=== PATIENT | female | born 1985 | race Caucasian/White ===

== ENCOUNTER 2016-06-15 07:52 | Emergency (ER) | payer MEDICAID ==
[~2016-06-15] VITALS: Ht 160 cm; Wt 60.0 kg
[~2016-06-15 07:52] MED LIST: ACYC800T PO; CEPH-583 PO; CYCL-375 PO; PREN-13 PO
[2016-06-15 07:55] VITALS: Ht 160 cm; Wt 60.0 kg
--- NOTE | 2016-06-15 08:44 | ERPDOC ---
Departure Disposition Decision Date: Jun 15, 2016 Disposition Decision Time: 08:43 Disposition: 01 DISCHARGED HOME, SELF-CARE Impression Impression Impression: Primary Impression: Otitis media of left ear Additional Impression: Otitis externa, left Severity: Moderate Condition: Stable Seen By: Physician only Patient Instructions: Earache (ED) Problems/Meds/Labs Reviewed?: Yes Medications reviewed and manag: Yes Additional Instructions: Keflex 500 mg, 2 tabs twice daily for 10 days. Cortisporin otic drops, 4 drops to left ear 4 times daily for 7 days. Follow-up with her primary care provider. Follow up care ordered?: Yes Mental Status: Alert, Oriented Scripts Cephalexin (Keflex) 500 Mg Capsule 2 CAP PO BID, #40 CAP Prov: VENESSA CARRION MD 06/15/16 Neomycin/Polymyxin B Sulf/Hc (Tfrshuok-Yedlcjfbw-Th Ear Susp) 10 Ml Drops.susp 4 DROP OT QID, #10 ML Prov: VENESSA CARRION MD 06/15/16 HPI General Chief Complaint: Ear Pain/Injury Stated Complaint: EAR PAIN, THROAT PAIN, SWELLING IN NECK 35 WKS PRE Time Seen by Provider: 08:18 HPI Ear Pain Initial Comments 30-year-old female at 35 weeks' , presents with left-sided ear pain. No vaginal bleeding, no contractions, no vaginal discharge. She does feel the baby move. She has appropriate follow-up with obstetrics, by her report. Yesterday left-sided ear pain onset, this morning it is much more severe. Pain radiates down into her jaw on the left side. It hurts to chew food. No fever or chills. No difficulty swallowing. Allergies: Coded Allergies: Penicillins (Verified Allergy, Unknown, RASH, 06/15/16) Past History Past Medical History Pt denies signifigant PMH Surgical History General: tonsils Family History Family PMH: FOUND: other Social History Substance Use Type: does not use Alcohol Intake: none Sexuality: male partner Record Review Pertinent history updated: Yes Review of Systems ENMT Mouth/Throat: see HPI Teeth: see HPI Cardiovascular Cardiac: see HPI Pulmonary Respiratory: see HPI : see HPI All other Systems All Other Systems: Reviewed and Negative Exam General General Nourishment: well nourished, well developed, appears stated age, no acute distress General Body Habitus: well groomed Height (Feet): 5 Height (Inches): 3.00 ENMT (brief) Comments Left auditory canal with whitish debris throughout the canal. Left tympanic membrane is red and bulging. Patient has reactive lymph nodes anterior cervical neck. Neck Comments Cervical lymph nodes anterior, left cervical neck Respiratory (brief) Respiratory Brief: FOUND: clear all howe, equal bilaterally Cardiovascular (brief) Cardiac Brief: FOUND: regular rate, regular rhythm Neurologic RN Documented GCS Eye Opening: Verbal: Motor: Total: Differential Diagnoses Considering: Cellulitis, Eustachian tube dysfuncti, Otitis Externa, Otitis Media Progress Progress Progress Left-sided otitis media with otitis externa as well. Patient started on Keflex 500 mg 2 tabs twice a day. Cortisporin otic drops prescribed her ear. Patient is to follow-up with her primary care provider/OB as scheduled. Welcome to return if any other issues. VENESSA CARRION MD Jun 15, 2016 08:43
[2016-06-15] MEDS ORDERED: CEPH-583 PO (08:46)
[2016-06-15] MEDS ORDERED: NEOM10DR7 OT (08:46)
[2016-06-15 08:53] VITALS: BP 121/73; PULSE 89; RESP 16; TEMP 98.1; O2SAT 96
[2016-06-15] MEDS ORDERED: DOXY1TAB3 PO (08:57)
== END 2016-06-15 08:53 | disposition home or self-care (01) ==
LOC: ED 07:52
DX: O98.813 Other maternal infectious and parasitic diseases complicating pregnancy, third trimester (principal); H66.92 Otitis media, unspecified, left ear; H60.92 Unspecified otitis externa, left ear; Z3A.35 35 weeks gestation of pregnancy

== ENCOUNTER 2016-06-26 06:10 | Inpatient (IN) | payer MEDICAID ==
[~2016-06-26] VITALS: Ht 160 cm; Wt 58.4 kg
[~2016-06-26 06:10] MED LIST changes: -ACYC800T PO; -CYCL-375 PO; +DOXY1TAB3 PO; +NEOM10DR7 OT
--- OUTSIDE RECORDS SUMMARY | 2016-06-26 06:15 | XMS REPORT | Continuity of Care Document ---
Author Author [facility] Organization [facility] Address Unknown Phone Unavailable Support Name Relationship Address Phone VENESSA CARRION MD Caregiver [address] [place] [phone] Unavailable SUGAR BARAHONA Next Of Kin [address] [place] [id number] Insurance Providers Guarantor Roxanna Ramos Address [address] [address] Email DENIED 16 Payer [facility] State Plan Policy Number [id number] Subscriber's Name Roxanna Ramos Relationship 18 Self Effective Date 16 Expiration Date 16 Advance Directives Directive Response Recorded Date/Time Advanced Directives Type None 06/15/16 7:55am Chief Complaint and Reason for Visit Chief Complaint Ear Pain/Injury Reason for Visit [id number] Otitis media of left ear Problems Active Problems Medical Problem Onset Date Status Folliculitis Unknown Acute Nausea and vomiting during Unknown Acute Past Problems Medical Problem Onset Date Back strain Unknown Nausea and vomiting during Unknown Otitis externa, left Unknown Otitis media of left ear Unknown Patient left without being seen Unknown Shingles Unknown Medications Current Home Medications Medication Dose Units Route Directions Days Qty Instructions Start Date Cephalexin (Keflex) 500 Mg Capsule 2 Cap Oral Twice A Day 40 Capsule 06/15/16 Doxylamine/Pyridoxine Hcl (Richard Gilbert 10-10 Mg Tablet) 1 Each Tablet. 1 Tab Oral Daily 06/15/16 Neomycin/Polymyxin B Sulf/Hc (Tqxvosqf-Tbmhnkqqo-Yo Ear Susp) 10 Ml Drops.susp 4 Drop Otic Four Times Daily 10 Milliliter 06/15/16 Vit W-Ca,Fe,Fa(<1 Mg) ( Formula) 1 Each Tablet 1 Tab Oral Daily 01/02/16 Social History Social History Problem Response Recorded Date/Time Onset Date Status Chewing Tobacco Status No 06/15/2016 7:55am Not Applicable Not Applicable Hx Substance Use No 06/15/2016 7:55am Not Applicable Not Applicable Hx Alcohol Use No 06/15/2016 7:55am Not Applicable Not Applicable Query Response Start Date Stop Date Smoking Status Current every day smoker Hospital Discharge Instructions No hospital discharge instructions. Plan of Care Discharge Date 06/15/16 8:53am Disposition 01 DISCHARGED HOME, SELF-CARE Condition at Discharge Stable Instructions/Education Provided Earache (ED) Prescriptions See Medication Section Additional Instructions/Education Keflex 500 mg, 2 tabs twice daily for 10 days. Cortisporin otic drops, 4 drops to left ear 4 times daily for 7 days. Follow-up with her primary care provider. Functional Status No functional status results. Allergies, Adverse Reactions, Alerts Allergen Type Severity Reaction Status Last Updated Penicillin Allergy Unknown RASH Active 06/15/16 Immunizations Query Response on File Recorded Date/Time Influenza Vaccine Hx NOT REC'D THIS SEASON 06/15/16 7:55am Vital Signs Acute Vital Signs Vital Response Date/Time Temperature (Fahrenheit) 98.1 deg F (96.8 - 99.1) 06/15/2016 8:53am Temperature (Calculated Celsius) 36.86137 degrees C (36.0 - 37.3) 06/15/2016 8:53am Pulse Rate (adult) 89 bpm (60 - 100) 06/15/2016 8:53am Respiratory Rate 16 breaths/min (10 - 20) 06/15/2016 8:53am O2 Sat by Pulse Oximetry 96 % (90 - 100) 06/15/2016 8:53am Blood Pressure 121/73 mm Hg 06/15/2016 8:53am Height (Feet) 5 feet 06/15/2016 7:55am Height (Inches) 3.00 inches 06/15/2016 7:55am Weight (Kilograms) 60.000 kg 06/15/2016 7:55am Body Mass Index (BMI) 23.0 06/15/2016 7:55am Results Laboratory Results Test Name Result Units Flags Reference Collection Date/Time Result Date/ Time Comments White Blood Count 10.5 T/MM3 4.5-11.0 04/03/2016 10:48am 04/03/2016 10: 55am Red Blood Count 4.26 M/MM3 4.00-5.20 04/03/2016 10:48am 04/03/2016 10: 55am Hemoglobin 13.4 GM/DL 12-16 04/03/2016 10:48am 04/03/2016 10:55am Hematocrit 39.3 % 36-46 04/03/2016 10:48am 04/03/2016 10:55am Mean Corpuscular Volume 92.3 UM3 80-100 04/03/2016 10:48am 04/03/2016 10:55am Mean Corpuscular Hemoglobin 31.5 UUG 26-34 04/03/2016 10:48am 2016 10:55am Mean Corpuscular Hemoglobin Concent 34.1 GM/DL 31-37 04/03/2016 10:48am 04/03/2016 10:55am RDW Standard Deviation 44.4 FL 36.9-50.2 04/03/2016 10:48am 04/03/2016 10:55am Platelet Count 231 T/MM3 130-400 04/03/2016 10:48am 04/03/2016 10:55am Mean Platelet Volume 10.7 UM3 9.4-12.4 04/03/2016 10:48am 04/03/2016 10 :55am Neutrophils % (Manual) 92.0 % H 33-66 04/03/2016 10:48am 04/03/2016 11: 27am Lymphocytes % (Manual) 7.0 % L 23-45 04/03/2016 10:48am 04/03/2016 11: 27am Basophils % (Manual) 1.0 % 0-2 04/03/2016 10:48am 04/03/2016 11:27am Absolute Neutrophils (Manual) 9.7 T/MM3 H 1.8-7.7 04/03/2016 10:48am 03/2016 11:27am Lymphocytes # (Manual) 0.7 T/MM3 L 1-4.8 04/03/2016 10:48am 04/03/2016 11:27am Basophils # (Manual) 0.1 T/MM3 0-0.2 04/03/2016 10:48am 04/03/2016 11: 27am Red Cell Morphology Comment NORMAL 04/03/2016 10:48am 04/03/2016 11 :27am Icterus Index < 2 0-7 04/03/2016 10:48am 04/03/2016 11:03am Chemistry Specimen Hemolysis < 15 0-25 04/03/2016 10:48am 04/03/2016 11:03am 0-25: Specimen Exhibited No Hemolysis. Turbidity < 20 0-20 04/03/2016 10:48am 04/03/2016 11:03am Sodium Level 140 MEQ/L 134-144 04/03/2016 10:48am 04/03/2016 11:03am Potassium Level 3.4 MEQ/L L 3.6-5 04/03/2016 10:48am 04/03/2016 11:03am Chloride Level 108 MEQ/L H 98-107 04/03/2016 10:48am 04/03/2016 11:03am Carbon Dioxide Level 20 MEQ/L L 22-30 04/03/2016 10:48am 04/03/2016 11: 03am Anion Gap 12 MEQ/L 5-15 04/03/2016 10:48am 04/03/2016 11:03am Blood Urea Nitrogen 5.0 MG/DL L 7-17 04/03/2016 10:48am 04/03/2016 11: 03am Creatinine 0.5 MG/DL L 0.7-1.2 04/03/2016 10:48am 04/03/2016 11:03am BUN/Creatinine Ratio 10 RATIO 6-26 04/03/2016 10:48am 04/03/2016 11: 03am Glomerular Filtration Rate Calc 147 04/03/2016 10:48am 04/03/2016 11:03am Glucose Level 95 MG/DL 65-110 04/03/2016 10:48am 04/03/2016 11:03am Calculated Osmolality 266 MOSM/KG 261-280 04/03/2016 10:48am 2016 11:03am Calcium Level 8.7 MG/DL 8.4-10.2 04/03/2016 10:48am 04/03/2016 11:03am Total Bilirubin 0.40 MG/DL 0.20-1.30 04/03/2016 10:48am 04/03/2016 11: 03am Alkaline Phosphatase 83 U/L 38-126 04/03/2016 10:48am 04/03/2016 11: 03am Total Protein 7.2 G/DL 6.3-8.2 04/03/2016 10:48am 04/03/2016 11:03am Albumin 3.9 G/DL 3.5-5.0 04/03/2016 10:48am 04/03/2016 11:03am Globulin 3.3 G/DL 2.4-3.6 04/03/2016 10:48am 04/03/2016 11:03am Albumin/Globulin Ratio 1.2 RATIO 1.1-2.2 04/03/2016 10:48am 04/03/2016 11:03am Aspartate Amino Transf (AST/SGOT) 19 U/L 14-36 04/03/2016 10:48am 04/03 11:03am Alanine Aminotransferase (ALT/SGPT) 22 U/L 9-52 04/03/2016 10:48am 03/2016 11:03am Procedures Procedure Status Date Provider(s) non-stress test Completed 04/03/16 Comprehen metabolic panel Completed 04/03/16 Complete cbc w/auto diff wbc Completed 04/03/16 Hydration iv infusion init Completed 04/03/16 [id number]"RINGERS LACTATE INFUSION, UP TO 1000 CC" Completed 04/03/16 Encounters Encounter Location Arrival/Admit Date Discharge/Depart Date Attending Provider Departed Emergency Room [facility] 06/15/16 7:52am 06/15/16 8: 53am VENESSA CARRION MD Departed Clinic [facility] 04/03/16 10:22am 04/03/16 11:50am CORIN JOVEL MD Recent Diagnosis
[2016-06-26] MEDS ORDERED: ACETAMINOPHEN 500 MG TABLET PO PRN ×2 (06:30→12:00)
[2016-06-26] MEDS ORDERED: LIDOCAINE 1% (10mg/ml) 2ml SDV ID PRN (06:30)
[2016-06-26] MEDS ORDERED: MAG-AL + SIM LIQUID 30 ML UDC PO PRN ×2 (06:30→12:00)
[2016-06-26] MEDS ORDERED: CALCIUM CARBONATE 500mg Chewable TAB PO PRN ×2 (06:30→12:00)
[2016-06-26] MEDS ORDERED: OXYTOCIN 30 UNIT in D5LR 500 ML SCH (06:30)
[2016-06-26 06:55] LABS: HCT - HEMATOCRIT 41.3 % (36-46); MEAN CORPUSCULAR HGB 30.3 UUG (26-34); MEAN CORPUSCULAR HGB CONC(MCHC 33.9 GM/DL (31-37); MEAN CORPUSCULAR VOLUME 89.4 UM3 (80-100); RED BLOOD COUNT 4.62 M/MM3 (4.00-5.20); WBC - WHITE BLOOD COUNT 10.3 T/MM3 (4.5-11.0)
[2016-06-26] MEDS ORDERED: D5LR 1,000 ML IV PRN (07:00)
[2016-06-26 07:17] VITALS: BP 125/78; PULSE 80; RESP 16; TEMP 98; O2SAT 99
[2016-06-26] MEDS: LR 1,000 ML IV PRN ×2 (08:25→12:34)
--- NOTE | 2016-06-26 09:49 | ANESOB ---
Epidural/ Date/Time DATE: 06/26/16 TIME: 09:48 Preop Diagnosis Procedure: Labor Epidural Plan: Epidural Height: 5 ' 3.00 " Weight: 58.400 kg BMI: kg/m2 P:2 Medications & Allergies Inpatient Medications Current Medications Medications (Trade) Dose Ordered Sig/Rosio Start Time Stop Time Status Last Admin Dose Admin Dextrose/Lactated Ringer's 1,000 ml @ 0 mls/hr Q0M PRN 06/26/16 07:00 06/26/16 08:25 0 MLS/HR Oxytocin/Dextrose/ Lactated Ringer's (Pitocin/D5lr) 503 ml @ 0 mls/hr Q0M 06/26/16 06:30 06/26/16 08:24 0 MLS/HR Lidocaine HCl 0.2 mg 0.2 mg PRN PRN 06/26/16 06:30 Lactated Ringer's (Lactated Ringers) 1,000 ml @ 0 mls/hr Q0M PRN 06/26/16 06:20 06/26/16 08:25 0 MLS/HR Acetaminophen (Tylenol Extra Strength) 1-2 TABS = 500-1,000 MG Q4H PRN 06/26/16 06:30 Al Hydroxide/Mg Hydroxide (Maalox) 30 ml Q4H PRN 06/26/16 06:30 Calcium Carbonate (TUMS Regular Strength) 1-2 TABS Q2H PRN 06/26/16 06:30 Cephalexin (Keflex) 500 Mg Capsule, 2 CAP PO BID Last Taken: on 06/25/16 0800 Doxylamine/Pyridoxine HCl (Diclegis Dr 10-10 mg Tablet) 1 Each Tablet.dr, 1 TAB PO DAILY, (Reported) Last Taken: on 06/25/16 0800 Neomycin/Polymyxin B Sulf/Hc (Neomycin- Polymyxin-Hc Ear Susp) 10 Ml Drops.susp, 4 DROP OT QID Last Taken: on 06/25/16 2000 Vit W-Ca,Fe,FA(<1 mg) ( Formula) 1 Each Tablet, 1 TAB PO DAILY, (Reported) Last Taken: on 06/25/16 0800 Coded Allergies: Penicillins (Verified Allergy, Unknown, RASH, 06/15/16) Medical/Surgical History Anesthesia PMH: Reports: *Diabetes (GESTATIONAL DM), Denies: Anesthesia Reactions, Cancer, Hepatitis, Malignant Hyperthermia, Rheumatic Fever, Seizures Smoking Status: Current every day smoker # of Packs/Tins per Day: 0.5 Does patient use chewing tobac: No Second Hand Exposure: Yes Substance Use Type: does not use Alcohol Intake: none Anesthesia Adverse Reactions: FOUND none Family Hx of Anesthesia Advers: none Hx of Motion Sickness: No Complications During : No Pertinent Findings Laboratory Tests 06/26/16 06:43 Physical Exam Respiratory: Lungs clear Cardiovascular: Regular rate, rhythm Airway Assessment Mallampati Score: II TMD: 3 Fingerbreadths Neck Extension: Good Overall Assessment: May Be Diff Mask Vent., May Be Diff Intubation ASA: 2 Discussion Discussed risks/options/alternatives of anesthesia. Patient consents. Nursing pain assessment noted. Present for Discussion: Present: Parent, Spouse Attestation Statement Prior to the delivery of any anesthetic medication, I examined the patient, developed the plan, obtained the patient's consent and discussed the risk and benefits of the procedure with the patient/guardian. If the note happens to be signed after anesthesia start time, it is only due to providing efficient care of the patient and documenting at a time when the computer is available. ELLA HUGHES CRNA Jun 26, 2016 09:49
[2016-06-26] MEDS ORDERED: ONDANSETRON 4mg/2ml INJECTION IV PRN (10:00)
[2016-06-26] MEDS ORDERED: ROPIVACAINE 1% 200 MG, SUFENTANIL 50 MCG in NORMAL SALINE 80 ML EPI PRN (10:00)
[2016-06-26] MEDS ORDERED: NALOXONE 0.4mg/ml INJECTION IV PRN (10:00)
[2016-06-26] MEDS ORDERED: DiphenhydrAMINE 50 MG/ML INJECTION IV PRN (10:00)
[2016-06-26] MEDS ORDERED: LIDOCAINE 2% (20mg/ml) 5ml PF SDV ONE (11:22)
[2016-06-26] MEDS ORDERED: SALINE FLUSH 10ml SYRINGE ONE (11:22)
[2016-06-26] MEDS ORDERED: OXYTOCIN 30 UNIT in D5W 500 ML IV ONE (11:49)
[2016-06-26] MEDS ORDERED: DiphenhydrAMINE 25 MG CAPSULE PO PRN (12:00)
[2016-06-26] MEDS ORDERED: HYDROCORTISONE 2.5% CREAM 30 GM RECTALLY PRN (12:00)
[2016-06-26] MEDS ORDERED: MILK OF MAGNESIA 30 ML SUSP PO PRN (12:00)
[2016-06-26] MEDS ORDERED: PHENYLEPHRINE RECTAL SUPPOSITORY RECTALLY PRN (12:00)
--- NOTE | 2016-06-26 15:00 | NUR ---
Care Assumed Report from Adrian Proctor RN. Care assumed.
[2016-06-26 15:30] VITALS: BP 133/67; PULSE 92; RESP 18; TEMP 98.2
--- NOTE | 2016-06-26 15:30 | NUR ---
Assessment VSS and assessment WNL. Pt sitting up in bed. Fundus firm with minimal bleeding. Reporting pain in lower back at epidural site. Motrin given. Discussed POC with pt. Verbalizes understanding.
[2016-06-26] MEDS: IBUPROFEN 800 MG TABLET PO PRN (15:39)
[2016-06-26] MEDS ORDERED: RHO(D) IMMUNE GLOBULIN 300mcg/2ml INJECTION IV ONE (16:15)
--- NOTE | 2016-06-26 16:18 | NUR ---
DCF THIS WORKER RECEIVED CALL FROM DCF WORKERZACH. DCF PLANNING A VISIT TO PT ON THIS DATE. UPDATE TO PRIMARY NURSE AND NOTIFIED TO CALL THIS WORKER WITH ANY NEEDS THAT THE PATIENT MAY HAVE AFTER DCF VISIT.
[2016-06-26] MEDS: HYDROCODONE/APAP 5 mg/325 mg TABLET PO PRN ×2 (17:26→21:04)
--- NOTE | 2016-06-26 18:59 | LDNF ---
DATE OF DELIVERY June 26, 2016 NARRATIVE Ms. Sebastian was admitted for induction of labor due to growth restriction. She measured less than 5th percent yesterday on ultrasound in our office. Her induction went well. At 4 cm dilatation I performed artificial rupture of membranes and produced clear fluid. Approximately an hour later she was complete and +1. She pushed with excellent effort over two contractions, delivering the head in the OA presentation. Baby was bulb suctioned on the perineum. With one further push she delivered the baby in total. Baby was then further bulb suctioned and placed on mother's abdomen. This was a liveborn female. After about two minutes the cord was doubly clamped. It was cut by the baby's father. The baby had Apgars of 7 and 8 and weighed 4 pounds 11.6 ounces. The placenta subsequently delivered spontaneously intact. It had a normal configuration and normal-appearing three-vessel cord. It was sent to Pathology for evaluation due to the growth restriction. The patient had a labial laceration. She reported this was where she tore with her prior delivery. This was repaired with two subcuticular stitches of 3-0 Vicryl. Total blood loss was approximately 300 mL. At the time of this dictation baby is in the room and doing well along with mother. SERGIO
[2016-06-26 21:00] VITALS: BP 128/82; PULSE 99; RESP 18; TEMP 98.1
--- NOTE | 2016-06-26 21:00 | NUR ---
Status Pt just returned to unit from getting fresh air. Rating pain 7/10 in lower back at epidural site. Requests 2 norco. Given as ordered. Heating pad placed at site as well. Pt states that heat helped relieve the pain earlier. Pt states that she has been up to bathroom several times this evening and feels she has been able to completely empty her bladder. Reports bleeding has been small without clots. Lights dimmed. Pt ready to sleep. Encouraged to call PRN. H2O refilled. Denies further needs.
[2016-06-27] MEDS: IBUPROFEN 800 MG TABLET PO PRN ×3 (00:03→22:26)
--- NOTE | 2016-06-27 00:39 | NUR ---
Chart Check 24 hour chart check completed
[2016-06-27 05:39] VITALS: BP 117/65; PULSE 83; RESP 18; TEMP 97.6; O2SAT 98
[2016-06-27] MEDS: HYDROCODONE/APAP 5 mg/325 mg TABLET PO PRN ×4 (05:46→22:26)
--- NOTE | 2016-06-27 07:08 | ANESPO ---
Post-Op Note Date 06/27/16 Time: 07:05 Status Pt Participated in Evaluation: Pt participated in person Vital Signs Date Time Temp Pulse Resp B/P Pulse Ox O2 Delivery O2 Flow Rate FiO2 06/27/16 05:39 97.6 83 18 117/65 98 06/26/16 07:17 Room Air Respiratory Function: Airway patent Cardiovascular Function: Regular pulse Mental Status: Alert/oriented Pain Level Intensity: 0 Unable to Assess Pain Due To: Pt Sleeping Hydration: Taking po fluids Complications during Recovery None apparent Post-Anesthesia Notes ambulatory without problems Follow-Up Instructions Instructions Per Surgeon JACOB WHITESIDE CRNA Jun 27, 2016 07:08
--- NOTE | 2016-06-27 07:56 | PNPDOC ---
Progress Note PPD1 Rubella: Immune GBS: Not Done/No Results Blood Type:A neg Subjective 06/27/16 Lochia: Moderate Pain: Controlled Voiding: Voiding Nausea and Vomiting: No Nausea/Vomiting Objective VSS AF Vital Signs Date Time Temp Pulse Resp B/P Pulse Ox O2 Delivery O2 Flow Rate FiO2 06/27/16 05:39 97.6 83 18 117/65 98 06/26/16 07:17 Room Air General: Alert and Oriented Abdomen: Fundus Firm Extremities: Non-tender Edema: None Assessment Plan Routine Care (Home tomorrow.) KERON BUSTILLO SOLE PAINTER Jun 27, 2016 07:56
[2016-06-27] MEDS: DOCUSATE CALCIUM 240 MG CAPSULE PO SCH (08:46)
--- NOTE | 2016-06-27 10:00 | NUR ---
CM THIS WORKER MET WITH PT IN ROOM. ALSO PRESENT WAS FOB. THIS WORKER INTRODUCED SELF AND ROLE OF CASE MANAGEMENT. THIS WORKER REVIEWED NEEDS AT THIS TIME. PARENTS REPORTED THAT THEY HAVE A BASSINET, DIAPERS, AND CLOTHING FOR BABY AT HOME. PARENTS CONCERNED ABOUT AFFORDING A CAR SEAT FOR BABY DUE TO BABY BEING UNDER 5 POUNDS. PARENTS REPORTED THAT THEY HAVE EXTENDED FAMILY MEMBER (GRANDMOTHER) THAT THEY HAVE CALL TO MAYBE BE ABLE TO HELP WITH THE COST. PARENTS REPORTED THAT THEY ARE INVOLVED WITH [facility] AND HAVE AN APPOINTMENT WITH [facility] ON 07/02/16. THIS WORKER INQUIRED REGARDING DCF VISIT ON 06/26/16 AND CUSTODY OF OTHER CHILDREN. PARENTS ADVISED THAT THEY HAD THEIR TWO CHILDREN REMOVED BECAUSE OF CHILD ENDANGERMENT DUE TO DRUGS IN JANUARY AND THE CHILDREN HAVE BEEN OUT OF THEIR CUSTODY FOR ABOUT 2 YEARS. PARENTS REPORTED THAT THE CHILDREN ARE PLACED WITH MATERNAL GRANDMOTHER AND ARE IN DCF CUSTODY. PARENTS REPORTED THAT THEY HAVE COURT ON 07/02/16 REGARDING THE 6 AND 4 YEAR OLD. THIS WORKER INQUIRED REGARDING DRUG/ALCOHOL USE DURING AND MOTHER DENIED. MOTHER REPORTED THAT SHE IS PLANNING ON STAYING HOME WITH THE BABY AND FATHER IS WORKING. FATHER REPORTED THAT THEY ARE ABLE TO PAY THEIR BILLS AND ABLE TO MEET THE FINANCIAL NEEDS OF THE BABY. THIS WORKER OFFERED ASSISTANCE WITH OBTAINING A CAR SEAT TO FIT THE SIZE OF THE INFANT. PARENTS WERE IN SUPPORT OF THIS AND GAVE CONSENT TO CALL [facility]/HEALTH DEPARTMENT. THIS WORKER GAVE CONTACT INFORMATION FOR PARENTS AND ENCOURAGED TO CONTACT THIS WORKER FOR ADDITIONAL NEEDS. UPDATE TO PRIMARY NURSE AT THIS TIME. THIS WORKER CALLED AND LEFT MESSAGE WITH SERVANDO WITH THE [facility] OFFICE INQUIRING REGARDING ASSISTANCE NEEDED FOR CAR SEAT.
--- NOTE | 2016-06-27 12:00 | NUR ---
STATUS RN IN ROOM FOR BABY VS, MOM TEARFUL. SUGAR JIANG STATES THEY HAVE OTHER ISSUES TO DEAL WITH THAT INVOLVES THEIR OTHER TWO CHILDREN. THEY STATED THEY DIDN'T WANT TO BREAKDOWN IN FRONT OF ARIEL. RN ASKED IF THEY WANTED BABY TO GO BACK TO NURSERY FOR AWHILE , THEY BOTH AGREED. BABY IN NURSERY FOR VS AND CCHD. RETURNED BABY TO ROOM AT 12:20, MOM IN SHOWER, DEIDRE PRESENT.
[2016-06-27 14:43] VITALS: BP 120/77; PULSE 98; RESP 18; TEMP 97.9; O2SAT 98
--- NOTE | 2016-06-27 14:58 | NUR ---
DCF REPORT DUE TO NOTIFICATION OF PRIOR CHILDREN (AGE 4 AND 6) IN DCF CUSTODY. Addendum: 06/27/16 at 1459 by CECI WEINSTEIN Amended: Links added. Addendum: 06/27/16 at 1657 by CECI WEINSTEIN LEFT MESSAGE FOR DCF WORKER, ZACH, ON THIS DATE REGARDING UPDATE DCF VISIT AND PLAN.
[2016-06-27 18:25] VITALS: BP 137/78; PULSE 85; RESP 14; TEMP 98
[2016-06-27 22:20] VITALS: BP 132/76; PULSE 101; RESP 14; TEMP 97.8
--- NOTE | 2016-06-28 01:36 | NUR ---
Chart Check 24 hour chart check completed
--- NOTE | 2016-06-28 02:45 | NUR ---
SHIFT SUMMARY: VSS, Pt's back pain controlled with PO Motrin, Ailey 5 and warmed rice bag. Fundus firm at 2 below umbilicus, light lochia. Pt tolerating general diet, voiding and performing own personal cares. Pt has been off unit multiple times this shift with Significant other. Pt interrupted bottle feeding baby to ambulate off unit with family. Pt providing all baby's cares. Gisselle present.
[2016-06-28 05:34] VITALS: BP 120/70; PULSE 81; RESP 14; TEMP 98.1; O2SAT 97
[2016-06-28] MEDS: HYDROCODONE/APAP 5 mg/325 mg TABLET PO PRN ×2 (05:43→10:53)
--- NOTE | 2016-06-28 07:00 | NUR ---
STATUS PT HIT CALL LIGHT AND REQUESTED BABY BE TAKEN BACK TO NURSERY, SO SHE CAN GET SOME COFFEE. BABY IN NURSERY FOR 30 MINS.
--- NOTE | 2016-06-28 07:51 | PNPDOC ---
Progress Note PPD2 Rubella: Immune GBS: Not Done/No Results Blood Type:A neg Subjective 06/28/16 Lochia: Minimal Pain: Controlled Voiding: Voiding Nausea and Vomiting: No Nausea/Vomiting Objective Vital Signs Date Time Temp Pulse Resp B/P Pulse Ox O2 Delivery O2 Flow Rate FiO2 06/28/16 05:34 98.1 81 14 120/70 97 06/27/16 22:20 Room Air General: Alert and Oriented Abdomen: Fundus Firm, Non-tender Edema: None Assessment SP, Plan Routine Care, Discharge Home, Continue PNV MIGUE DEUTSCH MD Jun 28, 2016 07:51
[2016-06-28] MEDS ORDERED: DOCU-168 PO (07:55)
[2016-06-28] MEDS ORDERED: IBUP-1547 PO (07:55)
--- NOTE | 2016-06-28 09:05 | NUR ---
STATUS PT STATES SHE NEEDS TO GO TO HER CAR AND REQUESTING BABY BE TAKEN TO NURSERY. BABY IN NURSERY FOR 25MINS.
[2016-06-28] MEDS: DOCUSATE CALCIUM 240 MG CAPSULE PO SCH (09:34)
[2016-06-28] MEDS: IBUPROFEN 800 MG TABLET PO PRN (10:53)
[2016-06-28 12:50] VITALS: BP 122/73; PULSE 90; RESP 14; O2SAT 99
--- NOTE | 2016-06-28 15:07 | NUR ---
[facility] DCF WORKER ZACH IN ROOM WITH SIENA FROM [id number], STATED SHE WOULD BE BACK AT 1200. SHE CAME ON UNIT AGAIN AT [id number].
--- NOTE | 2016-07-01 11:30 | NUR ---
CM FOLLOW UP THIS WORKER RECEIVED CALL FROM [facility] WORKERGUNNAR. UPDATE PROVIDED WITH CORD STAT AND DISCHARGE INFORMATION. THIS INFORMATION SENT TO [facility] ON THIS DATE.
== END 2016-06-28 12:53 | disposition home or self-care (01) | DRG 775 ==
LOC: EEVIPCON → MC 06:10 → EEVIPCON 06:10 → MC 06-28 10:42
PROVIDERS: ADMIT Obstetrics & Gynecology; ATTEND Obstetrics & Gynecology
PROC: 10E0XZZ Delivery of Products of Conception, External Approach (ICD-10-PCS; principal; 2016-06-26)
PROC: 0UQMXZZ Repair Vulva, External Approach (ICD-10-PCS; 2016-06-26)
PROC: 3E033VJ Introduction of Other Hormone into Peripheral Vein, Percutaneous Approach (ICD-10-PCS; 2016-06-26)
PROC: 10907ZC Drainage of Amniotic Fluid, Therapeutic from Products of Conception, Via Natural or Artificial Opening (ICD-10-PCS; 2016-06-26)
DX: O36.5930 Maternal care for other known or suspected poor fetal growth, third trimester, not applicable or unspecified (principal); O62.3 Precipitate labor; O70.0 First degree perineal laceration during delivery; O09.33 Supervision of pregnancy with insufficient antenatal care, third trimester; O09.893 Supervision of other high risk pregnancies, third trimester; O99.334 Smoking (tobacco) complicating childbirth; F17.210 Nicotine dependence, cigarettes, uncomplicated; Z3A.37 37 weeks gestation of pregnancy; Z37.0 Single live birth
CPT/HCPCS: 36415; 85027; 85460; 86900; 86901